=== PATIENT | female | born 1975 | race African-American/Black ===

== ENCOUNTER 2016-03-11 12:45 | Emergency (ER) | payer MEDICARE, MEDICAID ==
[2016-03-11] MEDS ORDERED: Morphine Sulfate 2 MG/ML SYRINGE ONE (13:18)
[2016-03-11] MEDS ORDERED: Ibuprofen 800 MG TAB ONE (13:31)
[2016-03-11] MEDS ORDERED: Sulfameth/Trimethoprim DS 800-160mg TAB ONE (13:31)
[2016-03-11] MEDS ORDERED: diphenhydrAMINE HCl 25 MG CAP ONE (13:31)
[2016-03-11] MEDS ORDERED: Clindamycin 150 MG CAP ONE (13:31)
--- NOTE | 2016-03-11 13:45 | ERRECORD ---
[facility] EMERGENCY RECORD HPI TOOTHACHE (13:30 LLDO) CHIEF COMPLAINT: Patient presents for evaluation of toothache, Patient presents for evaluation of jaw swelling. HISTORIAN: History provided by patient, History provided by patient's family. LOCATION: Symptoms are generalized. TEETH: upper right lateral incisor (#7), upper right central incisor (#8), upper left central incisor (#9), upper left lateral incisor (#10), upper left canine (cuspid) (#11), Pain to Loose Caries noted in Broken palpation. QUALITY: Pain is dull in nature, described as aching, described as BECOMES SHARP WITH MOVEMENT OR PALPATION, Described as similar to previous episodes. SEVERITY: Maximum severity of symptoms severe, Currently symptoms are severe. TIME COURSE: Gradual onset of symptoms, Symptoms are worsening, are constant, 3 weeks. ASSOCIATED WITH: Associated with dysphagia, Associated with facial pain, Associated with facial swelling. EXACERBATED BY: Patient's condition exacerbated by chewing, Patient's condition exacerbated by cold fluids, Patient's condition exacerbated by hot fluids. RELIEVED BY: Patient's condition relieved by rest. ROS CONSTITUTIONAL: Negative constitutional review of systems. (13:32 LLDO) EYES: Negative eye review of systems, Historian denies eye pain, denies eye redness, denies eye discharge. (13:34 LLDO) ENT: SEVERE DENTAL PAIN. (13:32 LLDO) MUSCULOSKELETAL: Negative musculoskeletal review of systems, Historian denies arthralgias, denies back pain, denies injury, denies myalgias, denies neck pain. (13:34 LLDO) SKIN: Negative skin review of systems, Historian denies cellulitis, denies rash, denies skin changes, denies skin lesions. (13:34 LLDO) NEUROLOGIC: Negative neurologic review of systems, Historian denies confusion, denies dizziness, denies focal weakness, denies mental status changes. (13:34 LLDO) HEMO/LYMPHATIC: Normal hematologic/lymphatic system review, Historian denies abnormal blood clotting, denies gum bleeding, denies petechiae. (13:34 LLDO) ALLERGIC/IMMUNOLOGIC: Normal allergy/immunologic system review, Historian denies eczema, denies environmental allergies, denies food allergies. (13:34 LLDO) PSYCHIATRIC: Negative psychiatric review of systems, Historian denies alcohol abuse, denies anxiety, denies depression, denies drug abuse, denies hallucinations. (13:34 LLDO) NOTES: All systems reviewed, negative except as described above. (13:32 LLDO) &a-1R&a+25V*p+0X*[id number]*c202B*c15G*c2P*p-0X&a-25V&a+1R Name: Mandi Newell : 1975 F40 MedRec: [id number] AcctNum: [id number] Prepared: Eleanor Mar 11, 2016 13:48 by Interface Page 1 of 4 pMD [facility] EMERGENCY RECORD PAST MEDICAL HISTORY MEDICAL HISTORY: Flu vaccine not up to date, Tetanus not up to date, Notes: ANEMIA, Past medical history includes history of human immunodeficiency virus.HIV;. (12:54 MDEB) FEMALE SURGICAL HISTORY: Patient has no surgical history. (12:54 MDEB) PSYCHIATRIC HISTORY: No previous psychiatric history. (12:54 MDEB) SOCIAL HISTORY: Patient drinks socially, Patient denies drug use, Patient currently uses tobacco, smokes cigarettes, Light tobacco smoker, Patient smokes 1/2 packs per day, Patient denies alcohol use, Patient denies drug use, Patient currently uses tobacco, smokes cigarettes, Patient smokes 1/2 packs per day, Lives at home, with family. (12:54 MDEB) NOTES: Nursing records reviewed, Agree with nursing records, Medication list reviewed. (13:33 LLDO) KNOWN ALLERGIES aspirin: - causes palpitations hydrocodone (Unconfirmed) Penicillins VICOdin CURRENT MEDICATIONS No recorded medications VITAL SIGNS (12:51 MDEB) VITAL SIGNS: BP: 117/67, Pulse: 90, Resp: 20, Temp: 98.3 (Oral), Pain: 10, O2 sat: 100, Time: 03/11/2016 12:51. PHYSICAL EXAM CONSTITUTIONAL: Vital signs reviewed. (13:32 LLDO) HEAD: Head exam normal, Head exam included findings of head atraumatic, normocephalic. (13:34 LLDO) EYES: Eye exam normal, Eye exam included findings of eyelids normal to inspection, Pupils equally round and reactive to light, Extraocular muscles intact. (13:34 LLDO) ENT: Teeth with, dental caries, dental appliances, fractures, abscess. (13:32 LLDO) NECK: Neck exam normal, Neck exam included findings of normal range of motion, Trachea midline, no meningeal signs, no tenderness. (13:34 LLDO) BACK: Back exam normal, Back exam included findings of normal inspection, range of motion normal. (13:34 LLDO) UPPER EXTREMITY: Upper extremity exam normal, Upper extremity exam included findings of inspection normal, Range of motion normal. (13:34 LLDO) LOWER EXTREMITY: Lower extremity exam normal, Lower extremity exam included findings of inspection normal, Range of motion normal. &a-1R&a+25V*p+0X*i6849P*c202B*c15G*c2P*p-0X&a-25V&a+1R Name: Mandi Newell : 1975 F40 MedRec: [id number] AcctNum: [id number] Prepared: Eleanor Mar 11, 2016 13:48 by Interface Page 2 of 4 pMD [facility] EMERGENCY RECORD (13:34 LLDO) NEURO: Neuro exam normal, Neuro exam findings include patient oriented to person, place and time, Speech normal, Bells coma scale 15. (13:34 LLDO) SKIN: Skin exam normal, Skin exam included findings of skin warm, dry, and normal in color, no rash. (13:34 LLDO) PSYCHIATRIC: Psychiatric exam normal, Psychiatric exam included findings of patient oriented to person place and time, Normal affect. (13:34 LLDO) MEDICATION ADMINISTRATION SUMMARY Drug Name: Benadryl oral, Dose Ordered: 50 mg, Route: Oral, Status: Given, Time: 13:35 03/11/2016, Drug Name: Septra DS, Dose Ordered: 1 tab(s), Route: Oral, Status: Given, Time: 13:30 03/11/2016, Drug Name: clindamycin HCl, Dose Ordered: 600 mg, Route: Oral, Status: Given, Time: 13:30 03/11/2016, Drug Name: ibuprofen, Dose Ordered: 800 mg, Route: Oral, Status: Given, Time: 13:30 03/11/2016, Drug Name: Duramorph (PF), Dose Ordered: 6 mg, Route: Intramuscular, Status: Given, Time: 13:20 03/11/2016, Detailed record available in Medication Service section. DOCTOR NOTES (13:34 LLDO) TEXT: between lack of income and allergies, there is a very limited set of medical options. PROBLEM LIST No recorded problems DIAGNOSIS (13:24 LLDO) FINAL: PRIMARY: dental pain. PRESCRIPTION (13:27 LLDO) ibuprofen: TABLET : 800 mg : ORAL : Quantity: 1 Unit: tab(s) Route: ORAL Schedule: 3 times a day Dispense: 100 Unit: tab(s) May substitute. Refills: No Refills POTENTIAL ALLERGY REACTION: 'aspirin' Override Rationale: Reviewed with patient, pt says can safely take this medicine. NOTES: No Refills. Septra DS: TABLET : 800 mg-160 mg : ORAL : Quantity: 1 Unit: tab(s) Route: ORAL Schedule: 2 times a day (before meals) Dispense: 20 Unit: tab(s) May substitute. Refills: No Refills . NOTES: ^s=No Refills No Refills. &a-1R&a+25V*p+0X*o0234X*c202B*c15G*c2P*p-0X&a-25V&a+1R Name: Mandi Newell : 1975 1 MedRec: [id number] AcctNum: [id number] Prepared: Eleanor Mar 11, 2016 13:48 by Interface Page 3 of 4 pMD [facility] EMERGENCY RECORD DISPOSITION PATIENT: Disposition Type: Discharge, Disposition: *Discharge Home. (13:24 LLDO) Patient left the department. (13:42 MDEB) Valero: LLDO=MD Almas, Homer MDEB=ITZEL Castellanos, Sharon &a-1R&a+25V*p+0X*k3165X*c202B*c15G*c2P*p-0X&a-25V&a+1R Name: Mandi Newell : 1975 F40 MedRec: [id number] AcctNum: [id number] Prepared: Eleanor Mar 11, 2016 13:48 by Interface Page 4 of 4 pMD [facility]
--- NOTE | 2016-03-11 13:52 | PICIS ---
[facility] EMERGENCY RECORD TRIAGE (12:54 MDEB) PATIENT: NAME: Mandi Newell, AGE: 40, GENDER: female, : Grace 1975, TIME OF GREET: Sun Mar 11, 2016 12:46, PREFERRED LANGUAGE: Pashto, RACE: Black or , ETHNICITY: Not or , ECODE BILLING MAP: [facility], SSN: [id number], Zip Code: [address], KG WEIGHT: 63.50, PHONE: , , , PERSON ID: [id number], PCP: April MEMBRENO RICARDO. (12:54 MDEB) TRIAGE NOTES: DENTAL PAIN - MULTIPLE FX TEETH, DENTAL CARIES. (12:54 MDEB) COMPLAINT: TOOTH PAIN. (12:54 MDEB) ADMISSION: URGENCY: 3 Urgent, ADMISSION SOURCE: Home, TRANSPORT: Walk-in, BED: TRIAGE. (12:54 MDEB) PAIN: Patient complains of pain described as, aching, on a scale 0-10 patient rates pain as 10. (12:54 MDEB) IMMUNIZATIONS: Tetanus immunization up to date. (12:54 MDEB) TRIAGE SCREENING: Patient denies suicidal ideation, Patient denies presence of domestic violence. (12:54 MDEB) PROVIDERS: TRIAGE NURSE: Sharon Castellanos RN. (12:54 MDEB) VITAL SIGNS: BP 117/67, Pulse 90, Resp 20, Temp 98.3, (Oral), Pain 10, O2 Sat 100, Time 03/11/2016 12:51. (12:51 MDEB) PREVIOUS VISIT ALLERGIES: aspirin, Penicillins, VICOdin. (12:54 MDEB) KNOWN ALLERGIES aspirin: - causes palpitations hydrocodone (Unconfirmed) Penicillins VICOdin CURRENT MEDICATIONS No recorded medications VITAL SIGNS (12:51 MDEB) VITAL SIGNS: BP: 117/67, Pulse: 90, Resp: 20, Temp: 98.3 (Oral), Pain: 10, O2 sat: 100, Time: 03/11/2016 12:51. NURSING ASSESSMENT: DENTAL (12:58 MDEB) CONSTITUTIONAL: Patient arrives ambulatory, Gait steady, History obtained from patient, Patient appears, anxious, in distress due to pain, uncomfortable, Patient cooperative, Patient alert, Oriented to person, place and time, Skin warm, Skin dry, Skin normal in color, Mucous membranes pink, Mucous membranes moist, Patient is well-groomed, Patient complains of DENTAL PAIN, PAIN TO COMPLETE LOWER JAW. PAIN: aching pain, on a scale 0-10 patient rates pain as 10, Pain exacerbated by nothing, Nothing has been tried to alleviate the pain. DENTAL: Dental assessment findings include mouth normal, &a-1R&a+25V*p+0X*[id number]*c202B*c15G*c2P*p-0X&a-25V&a+1R Name: Mandi Newell : 1975 F40 MedRec: [id number] AcctNum: [id number] Prepared: Eleanor Mar 11, 2016 13:48 by Interface Page 1 of 7 pMD [facility] EMERGENCY RECORD Teeth abnormal:, broken secondary tooth (teeth), signs of infection to secondary tooth (teeth), color change to secondary tooth (teeth), missing secondary tooth (teeth), Associated with, no swelling to the face, swelling to the left jaw. NOTES: Emotional support needed and given, Patient tolerated procedure well. SAFETY: Side rails up, Cart/Stretcher in lowest position, Family at bedside, Call light within reach, Hospital ID band on. NURSING PROCEDURE: DISCHARGE NOTE (13:40 MDEB) DISCHARGE: Patient discharged to home, ambulating without assistance, family driving, accompanied by parent, Summary of Care printed/ provided, Patient requested and was provided an electronic copy of Discharge Instructions, Transition record given to patient, Discharge instructions given to patient, Discharge instructions given to mother, Simple or moderate discharge teaching performed, MEDICATIONS, Prescriptions given and instructions on side effects given, Above person(s) verbalized understanding of discharge instructions and follow-up care, Patient treated and evaluated by physician. BELONGINGS: Belongings remain with patient, Valuables remain with patient. NOTES: Emotional support needed and given, Patient tolerated procedure well. MEDICATION ADMINISTRATION SUMMARY Drug Name: Benadryl oral, Dose Ordered: 50 mg, Route: Oral, Status: Given, Time: 13:35 03/11/2016, Drug Name: Septra DS, Dose Ordered: 1 tab(s), Route: Oral, Status: Given, Time: 13:30 03/11/2016, Drug Name: clindamycin HCl, Dose Ordered: 600 mg, Route: Oral, Status: Given, Time: 13:30 03/11/2016, Drug Name: ibuprofen, Dose Ordered: 800 mg, Route: Oral, Status: Given, Time: 13:30 03/11/2016, Drug Name: Duramorph (PF), Dose Ordered: 6 mg, Route: Intramuscular, Status: Given, Time: 13:20 03/11/2016, Detailed record available in Medication Service section. MEDICATION SERVICE Benadryl oral: Order: Benadryl oral (diphenhydramine HCl) - Dose: 50 mg : Oral Schedule: Now Ordered by: Homer Coburn MD Entered by: MD Eleanor De La O Mar 11, 2016 13:19 Documented as given by: ITZEL Dodd Mar 11, 2016 13:35 Patient, Medication, Dose, Route and Time verified prior to administration. Amount given: 50 MG, Site: Medication administered P.O., Correct &a-1R&a+25V*p+0X*e0672K*c202B*c15G*c2P*p-0X&a-25V&a+1R Name: Mandi Newell : 1975 F40 MedRec: [id number] AcctNum: [id number] Prepared: Eleanor Mar 11, 2016 13:48 by Interface Page 2 of 7 pMD [facility] EMERGENCY RECORD patient, time, route, dose and medication confirmed prior to administration, Patient advised of actions and side-effects prior to administration, Allergies confirmed and medications reviewed prior to administration, Patient in position of comfort, Side rails up, Cart in lowest position, Family at bedside. clindamycin HCl: Order: clindamycin HCl - Dose: 600 mg : Oral Schedule: Now Ordered by: Homer Coburn MD Entered by: MD Eleanor De La O Mar 11, 2016 13:18 , Acknowledged by: ITZEL Dodd Mar 11, 2016 13:28 Documented as given by: ITZEL Dodd Mar 11, 2016 13:30 Patient, Medication, Dose, Route and Time verified prior to administration. Amount given: 600 MG, Site: Medication administered P.O., Correct patient, time, route, dose and medication confirmed prior to administration, Patient advised of actions and side-effects prior to administration, Allergies confirmed and medications reviewed prior to administration, Patient in position of comfort, Side rails up, Cart in lowest position, Family at bedside. Duramorph (PF): Order: Duramorph (PF) (morphine sulfate/preservative free) - Dose: 6 mg : Intramuscular POTENTIAL ALLERGY REACTION: 'VICOdin [hydrocodone/hydrocodone bitartrate]' - Reviewed with patient, pt says can safely take this medicine Schedule: Now Ordered by: Homer Coburn MD Entered by: MD Eleanor eD La O Mar 11, 2016 13:16 Documented as given by: ITZEL Dodd Mar 11, 2016 13:20 Patient, Medication, Dose, Route and Time verified prior to administration. IM medication, Amount given: 6 MG, Medication administered to right hip, Correct patient, time, route, dose and medication confirmed prior to administration, Patient advised of actions and side-effects prior to administration, Allergies confirmed and medications reviewed prior to administration, Patient in position of comfort, Side rails up, Cart in lowest position, Family at bedside. ibuprofen: Order: ibuprofen - Dose: 800 mg : Oral POTENTIAL ALLERGY REACTION: 'aspirin' - Reviewed with patient, pt says can safely take this medicine Schedule: Now Ordered by: Homer Coburn MD Entered by: MD Eleanor De La O Mar 11, 2016 13:21 , Acknowledged by: ITZEL Dodd Mar 11, 2016 13:28 Documented as given by: ITZEL Dodd Mar 11, 2016 13:30 Patient, Medication, Dose, Route and Time verified prior to administration. Amount given: 800 MG, Site: Medication administered P.O., Correct patient, time, route, dose and medication confirmed prior to administration, Patient advised of actions and side-effects prior to &a-1R&a+25V*p+0X*a9807K*c202B*c15G*c2P*p-0X&a-25V&a+1R Name: Mandi Newell : 1975 F40 MedRec: [id number] AcctNum: [id number] Prepared: Eleanor Mar 11, 2016 13:48 by Interface Page 3 of 7 pMD [facility] EMERGENCY RECORD administration, Allergies confirmed and medications reviewed prior to administration, Patient in position of comfort, Side rails up, Cart in lowest position, Family at bedside. Septra DS: Order: Septra DS (sulfamethoxazole/trimethoprim) - Dose: 1 tab(s) : Oral Schedule: Now Ordered by: Homer Coburn MD Entered by: MD Eleanor De La O Mar 11, 2016 13:24 , Acknowledged by: ITZEL Dodd Mar 11, 2016 13:28 Documented as given by: ITZEL Dodd Mar 11, 2016 13:30 Patient, Medication, Dose, Route and Time verified prior to administration. Amount given: 1 TAB, Site: Medication administered P.O., Correct patient, time, route, dose and medication confirmed prior to administration, Patient advised of actions and side-effects prior to administration, Allergies confirmed and medications reviewed prior to administration, Patient in position of comfort, Side rails up, Cart in lowest position, Family at bedside. HPI TOOTHACHE (13:30 LLDO) CHIEF COMPLAINT: Patient presents for evaluation of toothache, Patient presents for evaluation of jaw swelling. HISTORIAN: History provided by patient, History provided by patient's family. LOCATION: Symptoms are generalized. TEETH: upper right lateral incisor (#7), upper right central incisor (#8), upper left central incisor (#9), upper left lateral incisor (#10), upper left canine (cuspid) (#11), Pain to Loose Caries noted in Broken palpation. QUALITY: Pain is dull in nature, described as aching, described as BECOMES SHARP WITH MOVEMENT OR PALPATION, Described as similar to previous episodes. SEVERITY: Maximum severity of symptoms severe, Currently symptoms are severe. TIME COURSE: Gradual onset of symptoms, Symptoms are worsening, are constant, 3 weeks. ASSOCIATED WITH: Associated with dysphagia, Associated with facial pain, Associated with facial swelling. EXACERBATED BY: Patient's condition exacerbated by chewing, Patient's condition exacerbated by cold fluids, Patient's condition exacerbated by hot fluids. RELIEVED BY: Patient's condition relieved by rest. ROS CONSTITUTIONAL: Negative constitutional review of systems. (13:32 LLDO) EYES: Negative eye review of systems, Historian denies eye pain, denies eye redness, denies eye discharge. (13:34 LLDO) ENT: SEVERE DENTAL PAIN. (13:32 LLDO) MUSCULOSKELETAL: Negative musculoskeletal review of systems, &a-1R&a+25V*p+0X*g8617F*c202B*c15G*c2P*p-0X&a-25V&a+1R Name: Mandi Newell : 1975 F40 MedRec: [id number] AcctNum: [id number] Prepared: Eleanor Mar 11, 2016 13:48 by Interface Page 4 of 7 pMD [facility] EMERGENCY RECORD Historian denies arthralgias, denies back pain, denies injury, denies myalgias, denies neck pain. (13:34 LLDO) SKIN: Negative skin review of systems, Historian denies cellulitis, denies rash, denies skin changes, denies skin lesions. (13:34 LLDO) NEUROLOGIC: Negative neurologic review of systems, Historian denies confusion, denies dizziness, denies focal weakness, denies mental status changes. (13:34 LLDO) HEMO/LYMPHATIC: Normal hematologic/lymphatic system review, Historian denies abnormal blood clotting, denies gum bleeding, denies petechiae. (13:34 LLDO) ALLERGIC/IMMUNOLOGIC: Normal allergy/immunologic system review, Historian denies eczema, denies environmental allergies, denies food allergies. (13:34 LLDO) PSYCHIATRIC: Negative psychiatric review of systems, Historian denies alcohol abuse, denies anxiety, denies depression, denies drug abuse, denies hallucinations. (13:34 LLDO) NOTES: All systems reviewed, negative except as described above. (13:32 LLDO) PAST MEDICAL HISTORY MEDICAL HISTORY: Flu vaccine not up to date, Tetanus not up to date, Notes: ANEMIA, Past medical history includes history of human immunodeficiency virus.HIV;. (12:54 MDEB) FEMALE SURGICAL HISTORY: Patient has no surgical history. (12:54 MDEB) PSYCHIATRIC HISTORY: No previous psychiatric history. (12:54 MDEB) SOCIAL HISTORY: Patient drinks socially, Patient denies drug use, Patient currently uses tobacco, smokes cigarettes, Light tobacco smoker, Patient smokes 1/2 packs per day, Patient denies alcohol use, Patient denies drug use, Patient currently uses tobacco, smokes cigarettes, Patient smokes 1/2 packs per day, Lives at home, with family. (12:54 MDEB) NOTES: Nursing records reviewed, Agree with nursing records, Medication list reviewed. (13:33 LLDO) PHYSICAL EXAM CONSTITUTIONAL: Vital signs reviewed. (13:32 LLDO) HEAD: Head exam normal, Head exam included findings of head atraumatic, normocephalic. (13:34 LLDO) EYES: Eye exam normal, Eye exam included findings of eyelids normal to inspection, Pupils equally round and reactive to light, Extraocular muscles intact. (13:34 LLDO) ENT: Teeth with, dental caries, dental appliances, fractures, abscess. (13:32 LLDO) NECK: Neck exam normal, Neck exam included findings of normal range of motion, Trachea midline, no meningeal signs, no tenderness. (13:34 LLDO) BACK: Back exam normal, Back exam included findings of normal &a-1R&a+25V*p+0X*l8650M*c202B*c15G*c2P*p-0X&a-25V&a+1R Name: Mandi Newell : 1975 F40 MedRec: [id number] AcctNum: [id number] Prepared: Eleanor Mar 11, 2016 13:48 by Interface Page 5 of 7 pMD [facility] EMERGENCY RECORD inspection, range of motion normal. (13:34 LLDO) UPPER EXTREMITY: Upper extremity exam normal, Upper extremity exam included findings of inspection normal, Range of motion normal. (13:34 LLDO) LOWER EXTREMITY: Lower extremity exam normal, Lower extremity exam included findings of inspection normal, Range of motion normal. (13:34 LLDO) NEURO: Neuro exam normal, Neuro exam findings include patient oriented to person, place and time, Speech normal, Pelon coma scale 15. (13:34 LLDO) SKIN: Skin exam normal, Skin exam included findings of skin warm, dry, and normal in color, no rash. (13:34 LLDO) PSYCHIATRIC: Psychiatric exam normal, Psychiatric exam included findings of patient oriented to person place and time, Normal affect. (13:34 LLDO) EVENTS TRANSFER: Triage to Emergency Triage. (Eleanor Mar 11, 2016 12:54 MDEB) Emergency Triage to Main ED -03. (12:58 MDEB) Removed from Emergency Main ED -03. (13:42 MDEB) DOCTOR NOTES (13:34 LLDO) TEXT: between lack of income and allergies, there is a very limited set of medical options. PROBLEM LIST No recorded problems DIAGNOSIS (13:24 LLDO) FINAL: PRIMARY: dental pain. DISPOSITION PATIENT: Disposition Type: Discharge, Disposition: *Discharge Home. (13:24 LLDO) Patient left the department. (13:42 MDEB) INSTRUCTION (13:28 LLDO) DISCHARGE: DENTAL PAIN. FOLLOWUP: April MEMBRENO, ESSIE, Infectious Disease, (fax), [place] [id number], , Follow up with Primary Care Physician as soon as possible. SPECIAL: Follow-up with your Dentist. PRESCRIPTION (13:27 LLDO) ibuprofen: TABLET : 800 mg : ORAL : Quantity: 1 Unit: tab(s) Route: ORAL Schedule: 3 times a day Dispense: 100 Unit: tab(s) May substitute. Refills: No Refills POTENTIAL ALLERGY REACTION: 'aspirin' &a-1R&a+25V*p+0X*x4130Q*c202B*c15G*c2P*p-0X&a-25V&a+1R Name: Mandi Newell : 1975 F40 MedRec: [id number] AcctNum: [id number] Prepared: Eleanor Mar 11, 2016 13:48 by Interface Page 6 of 7 pMD [facility] EMERGENCY RECORD Override Rationale: Reviewed with patient, pt says can safely take this medicine. NOTES: No Refills. Septra DS: TABLET : 800 mg-160 mg : ORAL : Quantity: 1 Unit: tab(s) Route: ORAL Schedule: 2 times a day (before meals) Dispense: 20 Unit: tab(s) May substitute. Refills: No Refills . NOTES: ^s=No Refills No Refills. IMAGING (13:41 MDEB) *DISCHARGE INSTRUCTIONS RECEIPT: Image captured from scanner. *SUPPLY CHARGE SHEET: Image captured from scanner. ADMIN DIGITAL SIGNATURE: MD Coburn Lloyd. (13:38 LLDO) MD Coburn Lloyd. (13:38 LLDO) MD Coburn Lloyd. (13:38 LLDO) MD Coburn Lloyd. (13:38 LLDO) MD Coburn Lloyd. (13:38 LLDO) MD Coburn Lloyd. (13:38 LLDO) MD Coburn Lloyd. (13:39 LLDO) Valero: LLDO=MD Coburn Lloyd MDEB=ITZEL Castellanos, Sharon &a-1R&a+25V*p+0X*f3622C*c202B*c15G*c2P*p-0X&a-25V&a+1R Name: Mandi Newell : 1975 F40 MedRec: [id number] AcctNum: [id number] Prepared: Eleanor Mar 11, 2016 13:48 by Interface Page 7 of 7 pMD [facility] MEDICATION RECONCILIATION You were seen in the Emergency Department on: Eleanor Mar 11, 2016 KNOWN ALLERGIES aspirin: - causes palpitations hydrocodone (Unconfirmed) Penicillins VICOdin MEDICATIONS GIVEN WHILE IN THE EMERGENCY DEPARTMENT Duramorph (PF) (morphine sulfate/preservative free) - Dose: 6 milligram(s) : Intramuscular clindamycin HCl - Dose: 600 milligram(s) : Oral Benadryl oral (diphenhydramine HCl) - Dose: 50 milligram(s) : Oral ibuprofen - Dose: 800 milligram(s) : Oral Septra DS (sulfamethoxazole/trimethoprim) - Dose: 1 tab(s) : Oral Notes from the emergency department Reviewed with family Reviewed with patient PRESCRIPTIONS (2) Printed (2) ibuprofen : TABLET : 800 mg : ORAL Quantity: 1, Unit: tab(s), Route: ORAL, Schedule: 3 times a day, Dispense: 100 Unit: tab(s) &a-1R&a+25V*p+0X*r2577T*c202B*c15G*c2P*p-0X&a-25V&a+1R Name: Mandi Newell : 1975 F40 MedRec: [id number] AcctNum: [id number] Prepared: Eleanor Mar 11, 2016 13:48 by Interface pMD [facility]
== END 2016-03-11 13:40 | disposition home or self-care (01) ==
LOC: MADERS 12:45
DX: K08.89 Other specified disorders of teeth and supporting structures (principal); D64.1 Secondary sideroblastic anemia due to disease; F17.210 Nicotine dependence, cigarettes, uncomplicated; Z21 Asymptomatic human immunodeficiency virus [HIV] infection status
CPT/HCPCS: 96372; J2270

== ENCOUNTER 2016-06-04 13:47 | Emergency (ER) | payer MEDICARE, MEDICAID ==
[2016-06-04] MEDS ORDERED: traMADol HCl 50 MG TAB ONE (14:23)
== END 2016-06-04 14:31 | disposition home or self-care (01) ==
LOC: MADERS 13:47
DX: K08.89 Other specified disorders of teeth and supporting structures (principal); D64.9 Anemia, unspecified; B20 Human immunodeficiency virus [HIV] disease; F17.210 Nicotine dependence, cigarettes, uncomplicated
CPT/HCPCS: 99282

== ENCOUNTER 2016-06-09 07:51 | Emergency (ER) | payer MEDICARE, MEDICAID ==
[~2016-06-09 07:51] MED LIST: Sodium Chloride 0.9% 1,000 ML BAG ONE
[2016-06-09 09:27] LABS: ALT (SGPT) 13 U/L (0-55); AST (SGOT) 33 U/L (5-34); Alkaline Phosphatase 69 U/L (40-150); Anion Gap 16 mmol/L (10-20); BUN (Urea Nitrogen) 17 mg/dL (7.0-18.7); Bilirubin, Total 0.3 mg/dL (0.2-1.2); Calc. Creatinine Clearance 0 mL/min (70-130); Calcium 9.1 mg/dL (7.8-10.44); Carbon Dioxide 22 mmol/L (22-29); Chloride 104 mmol/L (98-107); Estimated GFR-MDRD Greater than 90; Globulin 3.1 g/dL (2.4-3.5); Glucose 96 mg/dL (70-105); Potassium 3.1 mmol/L (3.5-5.1); Protein, Total 7.1 g/dL (6.0-8.3); Sodium 139 mmol/L (136-145)
[2016-06-09 09:51] LABS: Blood, Urine Negative (Negative); Glucose, Urine (Dipstick) Negative (Negative); Leukocyte Trace (Negative); Nitrite Negative (Negative); Protein, Urine (Dipstick) 100 mg/dL (Neg-Trace); Specific Gravity, Urine 1.025 (1.005-1.030)
[2016-06-09 10:01] LABS: Bilirubin Moderate (Negative); Clarity Hazy (Clear)
[2016-06-09 10:02] LABS: Bacteria/HPF 3+ HPF (None Seen); Crystals/HPF RARE AMORPH PHOS HPF (Negative); Icto Positive (Negative); Renal Epithelial 0-3 HPF (0-3); Squamous Epithelial 21-50 HPF (0-3); Transitional Epithelial 0-3 HPF (0-3); WBC/HPF 21-50 HPF (0-3); Yeast-All Forms Rare HPF (None Seen)
[2016-06-09 10:03] LABS: Hemoglobin 5.1 g/dL (12.0-16.0); Mean Corpuscular Hemoglobin 18.7 pg (27.0-31.0); Mean Corpuscular Volume 68.3 fL (81.0-99.0); Red Blood Cell (RBC) Count 2.74 mill/uL (4.20-5.40); White Blood Cell (WBC) Count 5.9 thou/uL (4.8-10.8)
[2016-06-09 10:04] LABS: %Lymphocytes 12.9 % (21.0-51.0); %Monocytes 11.9 % (0.0-10.0); %Neutrophils 73.6 % (42.0-75.0); Mean Corpuscular HGB CONC 27.4 g/dL (32.0-36.0); Mean Platelet Volume 7.3 fL (7.4-10.4); Platelet Count 387 thou/uL (130-400); RBC Distribution Width 19.5 % (11.5-14.5)
[2016-06-09 10:05] LABS: #Eosinphils 0.1 thou/uL (0.0-0.7); #Lymphocytes 0.8 thou/uL (1.20-3.40); #Monocytes 0.7 thou/uL (0.11-0.59); #Neutrophils 4.3 thou/uL (1.40-6.50); %Basophils 0.4 % (0.0-1.0); %Eosinophils 1.2 % (0.0-10.0); Anisocytosis MARKED = >30 cells (100X) (0-5/hpf); Hypochromia MARKED = >30 cells (100X) (0-5/hpf); Microcytosis MARKED = >30 cells (100X) (0-5/hpf); Poikilocytosis MODERATE=16-30 cells (100X) (0-5/hpf); Target Cells MARKED = >16 cells (100X) (0-1/hpf)
--- NOTE | 2016-06-09 10:21 | RAD ---
TWO VIES CHEST: DATE: 06/09/16. PROVIDED CLINICAL HISTORY: Weakness. FINDINGS: Comparison is made with the study dated 09/18/12. Cardiac and mediastinal silhouette is within normal limits. No focal consolidation, pleural fluid, or pneumothorax apparent. IMPRESSION: No evidence for an acute cardiopulmonary process. POS: [facility]
[2016-06-09] MEDS ORDERED: Ketorolac Tromethamine 30 MG/ML VIAL ONE (10:30)
[2016-06-09] MEDS ORDERED: Sulfameth/Trimethoprim DS 800-160mg TAB ONE (10:30)
[2016-06-09] MEDS ORDERED: diphenhydrAMINE HCl 50 MG/ML 1 ML VIAL ONE (11:33)
== END 2016-06-09 11:41 | disposition short-term general hospital (02) ==
LOC: MADERS 07:51
DX: E87.6 Hypokalemia (principal); D64.9 Anemia, unspecified; J20.9 Acute bronchitis, unspecified; K02.9 Dental caries, unspecified; B20 Human immunodeficiency virus [HIV] disease; N39.0 Urinary tract infection, site not specified; F17.210 Nicotine dependence, cigarettes, uncomplicated
CPT/HCPCS: 36415; 71020; 80053; 81001; 84443; 85025; 87081; 87086; 87430; 96365; 96375; J1200; J1885; J1956; J7050

== ENCOUNTER 2018-03-13 21:47 | Emergency (ER) | payer MEDICARE, MEDICAID ==
[2018-03-13] MEDS ORDERED: Dicyclomine 10 MG CAP ONE (22:13)
== END 2018-03-13 22:50 | disposition home or self-care (01) ==
LOC: MADERS 21:47
DX: R10.9 Unspecified abdominal pain (principal); D64.9 Anemia, unspecified; B20 Human immunodeficiency virus [HIV] disease; F17.210 Nicotine dependence, cigarettes, uncomplicated; Z71.6 Tobacco abuse counseling
CPT/HCPCS: 99406

== ENCOUNTER 2021-06-20 21:54 | Emergency (ER) | payer OTHER, MEDICARE, MEDICAID ==
[2021-06-20] MEDS ORDERED: Ketorolac Tromethamine 30 MG/ML VIAL ONE (22:53)
== END 2021-06-20 23:55 | disposition home or self-care (01) ==
LOC: MADERS 21:54
DX: M62.830 Muscle spasm of back (principal); D64.9 Anemia, unspecified; B20 Human immunodeficiency virus [HIV] disease; F17.210 Nicotine dependence, cigarettes, uncomplicated
CPT/HCPCS: 72070; 96372; J1885

== ENCOUNTER 2021-07-12 16:36 | Outpatient (CLI) | payer MEDICARE, MEDICAID | END 2021-07-12 16:37 | disposition home or self-care (01) | LOC: MADERS 16:36 | PROVIDERS: ATTEND Internal Medicine Infectious Disease | DX: R05.9 Cough, unspecified (principal); B20 Human immunodeficiency virus [HIV] disease | CPT/HCPCS: 71046 ==

== ENCOUNTER 2022-09-18 12:25 | Emergency (ER) | payer MEDICARE, MEDICAID ==
[2022-09-18] MEDS ORDERED: Ketorolac Tromethamine 30 MG/ML VIAL ONE (14:00)
[2022-09-18 14:03] LABS: Bilirubin Negative (Negative); Blood, Urine Large (Negative); Glucose, Urine (Dipstick) Negative (Negative); Ketone, Urine Negative (Negative); Leukocyte Trace (Negative); Nitrite Negative (Negative); Protein, Urine (Dipstick) 30 mg/dL (Neg-Trace); Urobilinogen 0.2 mg/dL (Less than 2); pH, Urine 6.5 (5.0-9.0)
[2022-09-18 14:04] LABS: Clarity Hazy (Clear); RBC/HPF Greater than 50 HPF (0-3)
[2022-09-18 14:05] LABS: Bacteria/HPF 1+ HPF (None Seen); CAUTI Indications for Culture Pelvic or flank pain; Squamous Epithelial 0-3 HPF (0-3)
[2022-09-18 14:08] LABS: Urine Culture Reflex No No
[2022-09-18 14:13] LABS: Pregnancy Test - Urine (BHCG) Negative (Negative)
[2022-09-18 14:14] LABS: Pregu Control Background? CLEAR/WHITE (CLR/WHITE); Pregu Control Bar Appear? YES (CONTROL BAR)
== END 2022-09-18 14:35 | disposition home or self-care (01) ==
LOC: MADERS 12:25
DX: N94.6 Dysmenorrhea, unspecified (principal); D64.9 Anemia, unspecified; F17.210 Nicotine dependence, cigarettes, uncomplicated; B20 Human immunodeficiency virus [HIV] disease; Z79.899 Other long term (current) drug therapy
CPT/HCPCS: 81001; 81025; 96372; 99284; J1885

== ENCOUNTER 2024-02-14 11:05 | Emergency (ER) | payer MEDICARE, MEDICAID ==
[2024-02-14] MEDS ORDERED: Acetaminophen 325 MG TAB ONE (11:50)
[2024-02-14] MEDS ORDERED: Ibuprofen 200 MG TAB ONE (11:50)
[2024-02-14] MEDS ORDERED: Bacitracin 1 PK ONE (11:52)
[2024-02-14] MEDS ORDERED: Boostrix 0.5 ML (Tdap) VIAL (>/=7 yrs of age) ONE (12:01)
== END 2024-02-14 12:06 | disposition home or self-care (01) ==
LOC: MADERS 11:05
DX: S61.011A Laceration without foreign body of right thumb without damage to nail, initial encounter (principal); F17.210 Nicotine dependence, cigarettes, uncomplicated; W26.0XXA Contact with knife, initial encounter; Z21 Asymptomatic human immunodeficiency virus [HIV] infection status; Z23 Encounter for immunization
CPT/HCPCS: 90471; 90715

== ENCOUNTER 2024-10-22 13:53 | Outpatient (CLI) | payer MEDICARE | END 2024-10-22 13:54 | disposition home or self-care (01) | LOC: MADRAD 13:53 | PROVIDERS: ATTEND Family Medicine | DX: M25.561 Pain in right knee (principal); M17.11 Unilateral primary osteoarthritis, right knee ==